=== PATIENT | female | born 1970 | race Caucasian/White ===

== ENCOUNTER 2016-06-27 11:31 | Inpatient (IN) | payer SELFPAY ==
[2016-06-13 14:05] VITALS: BMI 27.4
[2016-06-27] MEDS ORDERED: Midazolam 2 MG/2 ML VIAL ONE (12:51)
[2016-06-27] MEDS ORDERED: Propofol 10 mg/ml Inj (20 ML) ONE ×2 (12:52→16:01)
--- NOTE | 2016-06-27 13:16 | CP.PCM.HP ---
History of Present Illness - History of Present Illness History of Present Illness: 46yo female with h/o menorrhagia and fibroid uterus leading to episodes of anemia requiring hemotransfusion returns here today for a scheduled LUCAS. The options available for management has been described to patient and the patient had elected to go for the procedure for definitive treatment of her condition. The risks as well as the benefits and alternatives were described to the Pt. Pt verbalized understanding and obtained a consent. Present on Admission - Present on Admission Any Indicators Present on Admission: No Review of Systems - Review of Systems All systems: reviewed and no additional remarkable complaints except Past Patient History - Infectious Disease Hx of Infectious Diseases: None - Past Medical History & Family History Past Medical History?: Yes - Past Social History Smoking Status: Never Smoked - CARDIAC Hx Cardiac Disorders: Yes Hx Hypertension: Yes - PULMONARY Hx Respiratory Disorders: No - NEUROLOGICAL Hx Neurological Disorder: No - HEENT Hx HEENT Problems: Yes Other/Comment: blurry vision - RENAL Hx Chronic Kidney Disease: No - ENDOCRINE/METABOLIC Hx Endocrine Disorders: No - HEMATOLOGICAL/ONCOLOGICAL Hx Blood Disorders: Yes Hx Anemia: Yes Hx Blood Transfusions: No - INTEGUMENTARY Hx Dermatological Problems: No - MUSCULOSKELETAL/RHEUMATOLOGICAL Hx Musculoskeletal Disorders: No Hx Falls: No - GASTROINTESTINAL Hx Gastrointestinal Disorders: Yes Hx Hemorrhoids: Yes Other/Comment: bleeding from hemmoroids - GENITOURINARY/GYNECOLOGICAL Hx Genitourinary Disorders: Yes Hx Urinary Tract Infection: No Other/Comment: HX: UTERINE FIBROIDS : 2 Para: 2 - PSYCHIATRIC Hx Psychophysiologic Disorder: No Hx Substance Use: No - SURGICAL HISTORY Hx Surgeries: Yes Hx Section: Yes (x1) Other/Comment: bladder incontinence surgery. HX: SURGERY FOR PROLAPSED UTERUS( INFO FROM MED. RECORD) - ANESTHESIA Hx Anesthesia: Yes Hx Anesthesia Reactions: No Hx Malignant Hyperthermia: No Meds Allergies/Adverse Reactions: Allergies Allergy/AdvReac Type Severity Reaction Status Date / Time aspirin Allergy NAUSEA Verified 06/27/16 12:45 diclofenac Allergy NAUSEA Verified 06/27/16 12:45 ibuprofen [From Motrin] Allergy RASH Verified 06/27/16 12:45 Physical Exam - Constitutional Appears: Well - Eye Exam Eye Exam: PERRL - Respiratory Exam Respiratory Exam: Clear to Auscultation Bilateral, NORMAL BREATHING PATTERN - Cardiovascular Exam Cardiovascular Exam: REGULAR RHYTHM, RRR - GI/Abdominal Exam GI & Abdominal Exam: Normal Bowel Sounds - Exam Exam: NORMAL INSPECTION Bimanual exam: Uterine Enlargement - Extremities Exam Extremities exam: Positive for: normal inspection - Neurological Exam Neurological exam: Alert, Oriented x3 Results - Vital Signs Recent Vital Signs: Last Vital Signs Temp 97.8 F 06/27/16 12:06 Pulse 76 06/27/16 12:06 Resp 20 06/27/16 12:06 BP 126/85 06/27/16 12:06 Pulse Ox 98 06/27/16 12:06 - Labs Labs: Laboratory Results - last 24 hr 06/27/16 12:34 Blood Type A POSITIVE - Impressions Impression: 46yo Female with Fibroid uterus and HYpermenorrhea. Assessment & Plan (1) Fibroid (bleeding) (uterine) Status: Acute (2) Hypermenorrhea Status: Acute - Assessment and Plan (Free Text) Plan: NPO IV Fluids Sequential compression device Mefoxine 2gms 1 hour before incision. 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 - Date & Time Date: 06/27/16 Time: 13:22 Decision To Admit - Pt Status Changed To: Hospital Disposition Of: Inpatient - Admit Certification Admit to Inpatient:: After my assessment, the patient will require hospitalization for at least two midnights. This is because of the severity of symptoms shown, intensity of services needed, and/or the medical risk in this patient being treated as an outpatient. - InPatient: Physician Admission Certification:: Ignacio Still - . 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
[2016-06-27] MEDS ORDERED: Lactated Ringer's 1,000 ML IV ONE ×3 (13:55→16:21)
[2016-06-27] MEDS: cefOXitin IV 2 gm in Dextrose 50 ML IVPB ONE ×2 (14:05→14:12)
[2016-06-27] MEDS ORDERED: Lactated Ringer's 1,000 ML IV SCH (14:30)
[2016-06-27] MEDS ORDERED: HYDROmorphone 0.5 mg/0.5 ml ISec IVP PRN (14:30)
[2016-06-27] MEDS ORDERED: Morphine 4 MG/ML VIAL ONE (14:37)
[2016-06-27] MEDS ORDERED: Bupivacaine 0.5% Inj(30mL) ONE (14:38)
[2016-06-27] MEDS ORDERED: BUPIVACAINE 0.125%/0.9% NACL 600 ML IJ ONE (15:00)
[2016-06-27] MEDS ORDERED: Rocuronium 10 mg/ml (5 ml) ONE (15:03)
--- NOTE | 2016-06-27 16:12 | PCM.SURG1 ---
Surgeon's Initial Post Op Note - Surgeon's Notes Surgeon: Dr Still [place] Worker: Elzbieta Ly ( [facility] Practicxe resident) Type of Anesthesia: General Endo Anesthesia Administered By: Dr Sood Pre-Operative Diagnosis: 46yo Female with Hypermenorrhea and fibroid uterus Operative Findings: 8-10wk sized anteverted multinodular fibroid uterus. Normal appearing ovaries and fallopian tubes. IVFluid intake- 1700mls. EBL- 100mls. Urine - output- 200mls Post-Operative Diagnosis: Same as preop diagnosis Operation Performed: Total abdominal Hysterectomy and bilateral salpingectomy Specimen/Specimens Removed: Uterus with cervix and bilateral fallopian tubes. Estimated Blood Loss: EBL {In ML}: 100 Post-Op Condition: Good Date of Surgery/Procedure: 06/27/16 Time of Surgery/Procedure: 16:13
[2016-06-27] MEDS ORDERED: Morphine Monoject Barrel PCA 1mg/ml IV PRN (16:22)
[2016-06-27] MEDS: HYDROmorphone 0.5 mg/0.5 ml ISec IVP PRN ×2 (16:28→16:52)
[2016-06-27] MEDS: cefOXitin IV 2 gm in Dextrose 50 ML IVPB SCH (21:52)
[2016-06-28] MEDS: cefOXitin IV 2 gm in Dextrose 50 ML IVPB SCH ×2 (06:04→13:45)
[2016-06-28 07:53] LABS: HEMATOCRIT 28.2 % (34.0-47.0); MEAN CELL VOLUME 68.6 fL (81.0-99.0); MEAN CORPUSCULAR HEMOGLOBIN 21.6 pg (27.0-31.0); MEAN CORPUSCULAR HGB CONC 31.4 g/dL (33.0-37.0); MEAN PLATELET VOLUME 9.4 fL (7.2-11.7); RED CELL DISTRIBUTION WIDTH 18.5 % (11.5-14.5); WHITE BLOOD COUNT 10.8 K/uL (4.8-10.8)
[2016-06-28 07:55] LABS: CHLORIDE 101 mmol/L (98-107); POTASSIUM 4.5 mmol/L (3.6-5.2); SODIUM 137 mmol/L (132-148)
[2016-06-28 07:58] LABS: BLOOD UREA NITROGEN 8 mg/dL (7-17); CALCIUM 8.5 mg/dl (8.6-10.4); CARBON DIOXIDE 25 mmol/L (22-30); GFR AFRICAN-AMERICAN > 60; GLUCOSE,RANDOM 126 mg/dL (65-105)
--- NOTE | 2016-06-28 08:53 | CP.PCM.PN ---
Subjective - Date & Time of Evaluation Date of Evaluation: 06/28/16 Time of Evaluation: 08:50 - Subjective Subjective: 46yo female s/p LUCAS, POD #1, clinically stable, afebrile, reporting adequate pain control, tolerating po, voiding freely. Objective - Vital Signs/Intake and Output Vital Signs (last 24 hours): Temp Pulse Resp BP Pulse Ox 98.4 F 65 20 108/71 100 06/28/16 08:00 06/28/16 08:00 06/28/16 08:00 06/28/16 08:00 06/28/16 08:00 Intake and Output: 06/28/16 06/28/16 06:59 18:59 Intake Total 1475 Output Total 1800 Balance -325 - Medications Medications: Current Medications Enoxaparin Sodium (Lovenox) 40 mg SC DAILY [facility] Lactated Ringer's (Lactated Ringer's) 1,000 mls @ 125 mls/hr IV .Q8H [facility] Last Admin: 06/28/16 00:34 Dose: 125 mls/hr BUPIVACAINE 0.125%/0.9% NACL (Bupivacaine-Ns 0.125% On-Q Sports Umpire) 600 mls @ 4 mls/ hr IJ ONCE ONE Stop: 07/03/16 20:59 Cefoxitin Sodium (Mefoxin Iv 2 Gm Duplex) 50 mls @ 50 mls/hr IVPB Q8H [facility] Stop: 06/28/16 15:14 Last Admin: 06/28/16 06:04 Dose: 50 mls/hr Morphine Sulfate/Sodium Chloride (Morphine Requirements Manager Monoject Barrel) 30 mg IV Q4 PRN PRN Reason: Protocol Last Admin: 06/27/16 17:15 Dose: 30 mg Oxycodone/Acetaminophen (Percocet 5/325 Mg Tab) 2 tab PO Q4 PRN PRN Reason: Pain, severe (8-10) Stop: 06/30/16 16:04 - Labs Labs: 06/28/16 07:37 06/28/16 07:37 - Constitutional Appears: Well - Eye Exam Eye Exam: PERRL - Respiratory Exam Respiratory Exam: Clear to Ausculation Bilateral, NORMAL BREATHING PATTERN - Cardiovascular Exam Cardiovascular Exam: REGULAR RHYTHM, RRR - GI/Abdominal Exam GI & Abdominal Exam: Soft, Diminished Bowel Sounds - Exam External exam: NORMAL EXTERNAL EXAM - Back Exam Back Exam: NORMAL INSPECTION - Neurological Exam Neurological Exam: Oriented x3 Assessment and Plan (1) Status post total abdominal hysterectomy Status: Acute - Assessment and Plan (Free Text) Plan: D/C folleys catheter, Encourage ambulation, Liquids diet , advance to regular,
--- NOTE | 2016-06-28 15:26 | OP ---
PROCEDURE DATE: 06/27/2016 PREOPERATIVE DIAGNOSES: A 46-year-old with fibroid uterus and hypermenorrhea. POSTOPERATIVE DIAGNOSES: A 46-year-old with fibroid uterus and hypermenorrhea. PROCEDURE: Total abdominal hysterectomy and bilateral salpingectomy performed on 06/27/2016. SURGEON: Dr. Still. SKIN THERAPIST: Elzbieta Vickers(Medical Student). The human services assistant remained with the surgeon throughout its entire length. Assistance to the procedure was needed for exposure of tissues and help in the conduct of the surgery. ANESTHESIA: General endotracheal. ANESTHESIOLOGIST: Dr. Sood. COMPLICATIONS: There were no complications. ESTIMATED BLOOD LOSS: 100 mL. IV FLUID INTAKE: 1700 mL. URINE OUTPUT: 200 mL at the end of the procedure. FINDINGS: An enlarged uterus of about 8-10 week size, anteverted and multinodular fibroid uterus. There were normal appearing ovaries and fallopian tubes bilaterally. DESCRIPTION OF PROCEDURE: The risks, benefits, indications, and alternatives of the procedure were reviewed with the patient and informed consent was obtained. The patient was taken to the operating room with IV running and Gomez catheter in place. The patient was placed in the supine position, given general anesthesia, prepped and draped in the usual sterile fashion. A Pfannenstiel skin incision was made about 2 cm above the symphysis pubis and extended sharply to the rectus fascia. The fascia was then incised bilaterally with a curved Garcia scissors and the muscles of the anterior abdominal galvez were in the midline by sharp and blunt dissection. The peritoneum was grasped between 2 Lisset clamps, elevated, and entered sharply with Metzenbaum scissors and with good visualization of the bladder. The pelvis was examined with the findings noted above. An O'Azeem-O'Collier retractor was placed into the incision and the bowels were packed away with moist laparotomy sponges. A uterine corkscrew was placed on the fundal region of the uterus for retraction. The round ligaments on both sides were clamped, cauterized and transected using the LigaSure device. The anterior leaf of the broad ligament was incised along the bladder reflection to the midline from both sides. The bladder was then gently dissected off the uterine segment and the cervix with a sponge stick. The attachment of the ovarian ligaments and the fallopian tubes on both sides were clamped with the 8 mm LigaSure device. These were cauterized and transected on both sides. Hemostasis was visualized. The uterine arteries were skeletonized bilaterally. The arteries were clamped bilaterally with the LigaSure device at the level of the internal os. These were cauterized and transected. Again, hemostasis was assured. The uterosacral ligaments were clamped on both sides with a LigaSure device, cauterized and transected in a similar fashion. These tissues were clamped and cauterized in a caudal fashion until the vaginal cuff was entered. The cervix and the uterus at this point were amputated with the cautery. The vaginal cuff angles were closed with zezxam-am-enesd stitches of #0 Vicryl and were transfixed to the ipsilateral cardinal and uterosacral ligaments. The remainder of the vaginal cuff was closed with a series of interrupted #0 Vicryl [id number] sutures. Hemostasis was obtained. The remnants of the fallopian tubes on each side were elevated with babcocks forceps and the broad ligament inferior to each of the segments were clamped, cauterized and transected using the ligasure device. The excised fallopian tubes were sent for histopathology. The pelvis was then irrigated copiously with warmed normal saline. All laparotomy sponges and instruments were removed from the abdomen. Surgicel was placed in the area around the vaginal cuff for hemostasis. Attention was then turned to the abdominal wall, which was closed in layers with 2-0 Vicryl for the peritoneum and the rectus muscles. The rectus fascia was reapproximated using Vicryl #0. The subcutaneous tissue was brought together by means of #2-0 plain catgut. The skin was closed in a subcuticular fashion using #4-0 Vicryl. An On-Q pain reducing device was placed into the abdominal incisional wound to provide anesthesia. When the procedure was completed, the patient was sent to the recovery room awake and in stable condition. All counts of instruments, laparotomy pads, and needles used were correct x 3. Ignacio Still MD cc: [id number] TT: 06/28/2016 15:25:12 rod MAC
[2016-06-28] MEDS: Enoxaparin 40 mg Syringe SC SCH (15:48)
[2016-06-28] MEDS: Oxycodone/Acetaminophen 5/325 mg Tab PO PRN (18:16)
[2016-06-29 05:55] VITALS: RESP 18; O2SAT 98
[2016-06-29] MEDS: Oxycodone/Acetaminophen 5/325 mg Tab PO PRN (07:13)
[2016-06-29 07:17] VITALS: BP 106/73; PULSE 85; TEMP 98
--- NOTE | 2016-06-29 08:33 | CP.PCM.DIS ---
Provider - Provider Date of Admission: 06/27/16 16:03 Attending physician: Ignacio Still Time Spent in preparation of Discharge (in minutes): 32 Diagnosis - Discharge Diagnosis (1) Status post total abdominal hysterectomy Status: Acute Hospital Course - Lab Results Lab Results: Most Recent Lab Values WBC 10.8 K/uL (4.8-10.8) D 06/28/16 07:37 RBC 4.11 Mil/uL (3.80-5.20) 06/28/16 07:37 Hgb 8.9 g/dL (11.0-16.0) L 06/28/16 07:37 Hct 28.2 % (34.0-47.0) L 06/28/16 07:37 MCV 68.6 fL (81.0-99.0) L 06/28/16 07:37 MCH 21.6 pg (27.0-31.0) L 06/28/16 07:37 MCHC 31.4 g/dL (33.0-37.0) L 06/28/16 07:37 RDW 18.5 % (11.5-14.5) H 06/28/16 07:37 Plt Count 183 K/uL (130-400) 06/28/16 07:37 MPV 9.4 fL (7.2-11.7) 06/28/16 07:37 Sodium 137 mmol/L (132-148) 06/28/16 07:37 Potassium 4.5 mmol/L (3.6-5.2) 06/28/16 07:37 Chloride 101 mmol/L (98-107) 06/28/16 07:37 Carbon Dioxide 25 mmol/L (22-30) 06/28/16 07:37 Anion Gap 15 (10-20) 06/28/16 07:37 BUN 8 mg/dL (7-17) 06/28/16 07:37 Creatinine 0.5 MG/DL (0.7-1.2) L 06/28/16 07:37 Est GFR ( Amer) > 60 06/28/16 07:37 Est GFR (Non-Af Amer) > 60 06/28/16 07:37 Random Glucose 126 mg/dL (65-105) H 06/28/16 07:37 Calcium 8.5 mg/dl (8.6-10.4) L 06/28/16 07:37 Blood Type A POSITIVE 06/27/16 12:34 Antibody Screen Negative 06/27/16 12:34 - Hospital Course Hospital Course: 46yo female s/p LUCAS and B/L Salpingectomy, POD #2, clinically stable, ambulating , adequate pain control and tolerating po. The ON- Q pain relieving system in the incision was removed today. Pt would be discharged home today on Percocet and Keflex. Pt would f/u at the clinic in 2 weeks for wound check. Discharge Exam - Eye Exam Eye Exam: EOMI - Respiratory Exam Respiratory Exam: Clear to PA & Lateral, NORMAL BREATHING PATTERN - Cardiovascular Exam Cardiovascular Exam: REGULAR RHYTHM, RRR - GI/Abdominal Exam GI & Abdominal Exam: Normal Bowel Sounds - Exam Exam: NORMAL INSPECTION External exam: NORMAL EXTERNAL EXAM - Extremities Exam Extremities exam: normal inspection - Neurological Exam Neurological exam: Oriented x3 - Psychiatric Exam Psychiatric exam: Normal Mood Discharge Plan - Follow Up Plan Condition: GOOD Disposition: HOME/ ROUTINE Instructions: Abdominal Hysterectomy (DC), Wound Healing and Your Diet (DC) Additional Instructions: F/U with DR Still in 2 weeks. Clinical Quality Measures - Date & Time of Discharge Summary Date of Discharge Summary: 06/29/16 Time of Discharge Summary: 08:37
[2016-06-29] MEDS: Enoxaparin 40 mg Syringe SC SCH (09:06)
== END 2016-06-29 09:59 | disposition home or self-care (01) | DRG 359 ==
LOC: C.SDS 11:31 → C.4M 16:03
PROVIDERS: ADMIT Obstetrics & Gynecology; ATTEND Obstetrics & Gynecology
PROC: 0UT70ZZ Resection of Bilateral Fallopian Tubes, Open Approach (ICD-10-PCS; 2016-06-27)
PROC: 0UTC0ZZ Resection of Cervix, Open Approach (ICD-10-PCS; 2016-06-27)
PROC: 0UT90ZZ Resection of Uterus, Open Approach (ICD-10-PCS; principal; 2016-06-27 13:30)
DX: D25.9 Leiomyoma of uterus, unspecified (principal); N92.1 Excessive and frequent menstruation with irregular cycle

== ENCOUNTER 2016-10-08 10:27 | Emergency (ER) | payer OTHER, SELFPAY ==
[2016-10-08 10:32] VITALS: BMI 49.8
[2016-10-08 10:33] VITALS: BP 111/80; PULSE 86; RESP 18; TEMP 98.3; O2SAT 95
[2016-10-08 11:26] LABS: RBC URINE 1 /hpf (0-3); URINE BACTERIA RARE (<OCC); URINE BILIRUBIN NEGATIVE (NEGATIVE); URINE BLOOD 2+ (NEGATIVE); URINE COLOR Yellow (YELLOW); URINE GLUCOSE (UA) NORMAL (Normal); URINE KETONE NEGATIVE (NEGATIVE); URINE LEUKOCYTE ESTERASE NEG Leu/uL (Negative); URINE PROTEIN NEGATIVE (NEGATIVE); URINE UROBILINOGEN NORMAL mg/dL (0.2-1.0); WBC URINE 1 /hpf (0-5)
--- NOTE | 2016-10-08 11:41 | C.PDOC ---
History Of Present Illness Pt c/o right lower back/buttock pain radiating down RLE. Time Seen by Provider: 10/08/16 10:55 Chief Complaint (Nursing): Back Pain History Per: Patient Onset/Duration Of Symptoms: Days (1) Current Symptoms Are (Timing): Still Present Quality Of Discomfort: "Pain" Severity: Moderate Previous Symptoms: None Associated Symptoms: None Exacerbating Factor(s): Movement Additional History Per: Prior Records Past Medical History Reviewed: Historical Data, Nursing Documentation, Vital Signs Vital Signs: Last Vital Signs Temp 98.3 F 10/08/16 10:33 Pulse 86 10/08/16 10:33 Resp 18 10/08/16 10:33 BP 111/80 10/08/16 10:33 Pulse Ox 95 10/08/16 11:41 - Medical History PMH: Anemia, HTN Other Surgeries: Hysterectomy - [facility] Procedures RESECTION OF BILATERAL FALLOPIAN TUBES, OPEN APPROACH (06/27/16) RESECTION OF CERVIX, OPEN APPROACH (06/27/16) RESECTION OF UTERUS, OPEN APPROACH (06/27/16) TRANSFUSE NONAUT WHOLE BLOOD IN PERIPH VEIN, PERC (03/11/16) Family History: States: Unknown Family Hx - Social History Hx Tobacco Use: No Hx Alcohol Use: No Hx Substance Use: No - Immunization History Hx Tetanus Toxoid Vaccination: Yes Hx Influenza Vaccination: No Hx Pneumococcal Vaccination: No Review Of Systems Except As Marked, All Systems Reviewed And Found Negative. Constitutional: Negative for: Fever, Weakness Cardiovascular: Negative for: Chest Pain Respiratory: Negative for: Shortness of Breath Gastrointestinal: Negative for: Vomiting, Abdominal Pain Genitourinary: Negative for: Dysuria, Incontinence, Hematuria Musculoskeletal: Negative for: Neck Pain Skin: Negative for: Rash Neurological: Negative for: Weakness, Numbness, Seizures, Altered Mental Status Physical Exam - Physical Exam Appears: Non-toxic, No Acute Distress Skin: Normal Color, Warm, Dry, No Rash Head: Atraumatic, Normacephalic Eye(s): bilateral: Normal Inspection, PERRL, EOMI Neck: Normal ROM, Supple Cardiovascular: Rhythm Regular Respiratory: Normal Breath Sounds, No Accessory Muscle Use Gastrointestinal/Abdominal: Soft, No Tenderness Back: No CVA Tenderness, No Vertebral Tenderness, Paraspinal Tenderness (right lower/buttock area), Straight Leg Raising (positive on right side) Extremity: Normal ROM, No Calf Tenderness Extremity: Bilateral: Normal Color And Temperature Pulses: Right Dorsalis Pedis: Normal Neurological/Psych: Oriented x3, Normal Motor, Normal Sensation ED Course And Treatment O2 Sat by Pulse Oximetry: 95 Pulse Ox Interpretation: Normal Reassessment Condition: Improved Disposition Counseled Patient/Family Regarding: Diagnosis, Need For Followup, Rx Given - Disposition Referrals: [facility] [Outside] Disposition: HOME/ ROUTINE Disposition Time: 12:00 Condition: IMPROVED Additional Instructions: Follow up in the clinic for further evaluation and treatment. Return to the ER if you develop weakness, numbness, trouble urinating, worsening of symptoms or if you have any other concerns. Prescriptions: traMADol/Acetaminophen [Ultracet 325 MG-37.5 MG] 1 tab PO Q4 PRN #30 tab PRN Reason: Pain Instructions: Sciatica (ED) Forms: [employer] (Arabic) Print Language: BULGARIAN - Clinical Impression Clinical Impression: Right sided sciatica
== END 2016-10-08 12:06 | disposition home or self-care (01) ==
LOC: C.ER 10:27
DX: M54.31 Sciatica, right side (principal)

== ENCOUNTER 2018-07-06 12:44 | Inpatient (IN) | payer OTHER ==
[2018-07-06 12:44] VITALS: BMI 49.8
[2018-07-06 14:28] LABS: BASO % 0.7 % (0.0-2.0); EOS # 0.2 K/uL (0.0-0.7); EOS % 3.6 % (0.0-4.0); LYMPH # 1.9 K/uL (1.0-4.3); LYMPH % 28.5 % (20.0-40.0); MEAN CORPUSCULAR HEMOGLOBIN 27.6 pg (27.0-31.0); MEAN CORPUSCULAR HGB CONC 33.3 g/dL (33.0-37.0); MEAN PLATELET VOLUME 9.2 fL (7.2-11.7); MONO # 0.6 K/uL (0.0-0.8); MONO % 9.1 % (0.0-10.0); NEUT # 3.9 K/uL (1.8-7.0); NEUT % 58.1 % (50.0-75.0); RBC 4.97 Mil/uL (3.80-5.20); WHITE BLOOD COUNT 6.7 K/uL (4.8-10.8)
[2018-07-06 14:30] LABS: HEMOGLOBIN 13.7 g/dL (11.0-16.0)
[2018-07-06 14:39] LABS: ALB/GLOB RATIO 1.5 (1.0-2.1); ALBUMIN 4.7 g/dL (3.5-5.0); ALT/SGPT 30 U/L (9-52); AST/SGOT 30 U/L (14-36); BLOOD UREA NITROGEN 11 mg/dL (7-17); CALCIUM 9.4 mg/dl (8.6-10.4); GFR NON-AFRICAN AMERICAN > 60
[2018-07-06] MEDS ORDERED: Iodixanol 320 MG/ML 100 ML BOTTLE IV ONE (15:40)
--- NOTE | 2018-07-06 16:59 | CT ---
Date of service: 07/06/2018 PROCEDURE: CT NECK WITH CONTRAST HISTORY: right jaw/upper neck mass - abscess/LN/ salivary? COMPARISON: None available. TECHNIQUE: CT of the neck with intravenous contrast. Coronal and sagittal reformats generated. Intravenous contrast dose: 100 Visipaque 320 Radiation dose: Total exam DLP = 475.97 mGy-cm. This CT exam was performed using one or more of the following dose reduction techniques: Automated exposure control, adjustment of the mA and/or kV according to patient size, and/or use of iterative reconstruction technique. FINDINGS: NASOPHARYNX: Within normal limits. SUPRAHYOID NECK: No mass or abnormal enhancement oropharynx, oral cavity, parapharyngeal space and retropharyngeal space. INFRAHYOID NECK: No mass or abnormal enhancement larynx, hypopharynx, and supraglottic space. Vocal cords intact. MASS: None. GLANDS: Parotid and submandibular glands unremarkable. Normal size thyroid gland, without nodule. LYMPH NODES: There is an approximately 3.0 x 1.8 x 2.6 cm enhancing nodule with eccentric hypoenhancing component anteriorly, located medial to the platysma overlying the angle of the mandible. There are multiple subcentimeter lymph nodes, including submental, submandibular, anterior and posterior cervical chain lymph nodes. CERVICAL SPINE: No fracture or focal lesion. Within normal limits for the patient's age. VASCULAR STRUCTURES: There is normal intravascular enhancement. OTHER FINDINGS: None. IMPRESSION: Approximately 3.0 x 1.8 x 2.6 cm enhancing nodule with an eccentric necrotic component anteriorly, located deep to the right platysma overlying the angle of the mandible. Findings are most compatible with enlarged necrotic lymph node, given multiple subcentimeter lymph nodes involving the anterior and posterior cervical chain lymph nodes, this may be reactive, infectious or inflammatory in etiology. Neoplastic etiology including lymphoma is a consideration. The other differential considerations include benign and malignant soft tissue neoplasm. Clinical follow-up is advised and histopathologic correlation may be performed if clinically indicated.
--- NOTE | 2018-07-06 17:22 | C.PDOC ---
History Of Present Illness Patient presents to ED c/o 2-3 days or worsening right sided jaw swelling. She states she has had a "ball" in the area for approx 6 months, but it suddenly got larger and more painful. She admits to fever/chills, and radiation of pain into right ear. Patient denies dental pain or discharge in mouth, chest pain, SOB, trauma/injuries. PMHx: HTN, anemia Time Seen by Provider: 07/06/18 13:25 Chief Complaint (Nursing): Fever History Per: Patient History/Exam Limitations: no limitations Onset/Duration Of Symptoms: Persistent (6 months, worse in the past 2-3 days) Current Symptoms Are (Timing): Still Present Associated Symptoms: Fever, Chills Past Medical History Reviewed: Historical Data, Nursing Documentation, Vital Signs Vital Signs: Last Vital Signs Temp 98.3 F 07/06/18 17:18 Pulse 82 07/06/18 17:18 Resp 18 07/06/18 17:18 BP 131/70 07/06/18 17:18 Pulse Ox 100 07/06/18 17:18 Primary Care Provider: Non [facility] Provider, - Medical History PMH: Anemia, HTN - [facility] Procedures RESECTION OF BILATERAL FALLOPIAN TUBES, OPEN APPROACH (06/27/16) RESECTION OF CERVIX, OPEN APPROACH (06/27/16) RESECTION OF UTERUS, OPEN APPROACH (06/27/16) TRANSFUSE NONAUT WHOLE BLOOD IN PERIPH VEIN, PERC (03/11/16) Family History: States: No Known Family Hx - Social History Hx Tobacco Use: No Hx Alcohol Use: No Hx Substance Use: No - Immunization History Hx Tetanus Toxoid Vaccination: Yes Hx Influenza Vaccination: No Hx Pneumococcal Vaccination: No Review Of Systems Constitutional: Positive for: Fever, Chills, Other (right jaw pain/swelling) Cardiovascular: Negative for: Chest Pain, Palpitations Respiratory: Negative for: Cough, Shortness of Breath Gastrointestinal: Negative for: Nausea, Vomiting, Abdominal Pain, Diarrhea Skin: Negative for: Rash Neurological: Negative for: Headache, Dizziness Physical Exam - Physical Exam Appears: Well, Non-toxic, No Acute Distress Skin: Warm, Dry, Other (right jaw (angle of jaw) - approx 2cm tender solid mass/LN?, no overlying erythema, no fluctuance or induration) Head: Atraumatic, Normacephalic Oral Mucosa: Moist Tongue: Normal Appearing, No Swelling Lips: Normal Appearing, No Swelling Teeth: Normal Dentition, Other (no gingival erythema or swellign ) Throat: Normal, No Erythema, No Exudate, No Drooling Chest: Symmetrical Cardiovascular: Rhythm Regular Respiratory: Normal Breath Sounds, No Rales, No Rhonchi, No Wheezing Neurological/Psych: Oriented x3 ED Course And Treatment - Laboratory Results Result Diagrams: 07/08/18 07:15 07/08/18 07:15 Lab Results: Total Bilirubin 0.7 mg/dL (0.2-1.3) 07/06/18 14:24 AST 30 U/L (14-36) 07/06/18 14:24 ALT 30 U/L (9-52) 07/06/18 14:24 Alkaline Phosphatase 71 U/L (38-126) 07/06/18 14:24 Total Protein 7.9 g/dL (6.3-8.3) 07/06/18 14:24 Albumin 4.7 g/dL (3.5-5.0) 07/06/18 14:24 Globulin 3.2 gm/dL (2.2-3.9) 07/06/18 14:24 Albumin/Globulin Ratio 1.5 (1.0-2.1) 07/06/18 14:24 O2 Sat by Pulse Oximetry: 100 (RA) Pulse Ox Interpretation: Normal - CT Scan/US CT ABD/PELVIS Other Rad Studies (CT/US): Read By Radiologist, Radiology Report Reviewed CT/US Interpretation: Accession No. : [id number]. Patient Name / ID : MARLENE GARCÍA / [id number]. Exam Date : 07/06/2018 15:58:53 ( Approved ). Study Comment : Sex / Age : F / 48Y. Creator : Abril Schaefer. Dictator : Aviva Figueroa MD. Wrapper Stemmer Hand : Nuclear Station Operator : Aviva Figueroa MD. Approver2 : Report Date : 07/06/2018 16:21:13. My Comment : . Date of service: 07/06/2018. PROCEDURE: CT NECK WITH CONTRAST. HISTORY: right jaw/upper neck mass - abscess/LN/ salivary? COMPARISON: None available. TECHNIQUE: CT of the neck with intravenous contrast. Coronal and sagittal reformats generated. Intravenous contrast dose: 100 Visipaque 320. Radiation dose: Total exam DLP = 475.97 mGy-cm. This CT exam was performed using one or more of the following dose reduction techniques: Automated exposure control, adjustment of the mA and/or kV according to patient size, and/or use of iterative reconstruction technique. FINDINGS: NASOPHARYNX: Within normal limits. SUPRAHYOID NECK: No mass or abnormal enhancement oropharynx, oral cavity, parapharyngeal space and retropharyngeal space. INFRAHYOID NECK: No mass or abnormal enhancement larynx, hypopharynx, and supraglottic space. Vocal cords intact. MASS: None. GLANDS: Parotid and submandibular glands unrem arkable. Normal size thyroid gland, without nodule. LYMPH NODES: There is an approximately 3.0 x 1.8 x 2.6 cm enhancing nodule with eccentric hypoenhancing component anteriorly, located medial to the platysma overlying the angle of the mandible. There are multiple subcentimeter lymph nodes, including submental, submandibular, anterior and posterior cervical chain lymph nodes. CERVICAL SPINE: No fracture or focal lesion. Within normal limits for the patient's age. VASCULAR STRUCTURES: There is normal intravascular enhancement. OTHER FINDINGS: None. IMPRESSION: Approximately 3.0 x 1.8 x 2.6 cm enhancing nodule with an eccentric necrotic component anteriorly, located deep to the right platysma overlying the angle of the mandible. Findings are most compatible with enlarged necrotic lymph node, given multiple subcentimeter lymph nodes involving the anterior and posterior cervical chain lymph nodes, this may be reactive, infectious or inflammatory in etiology. Neoplastic etiology including lymphoma is a consideration. The other differential considerations include benign and m alignant soft tissue neoplasm. Clinical follow-up is advised and histopathologic correlation may be performed if clinically indicated. Progress Note: Blood work, CT scan with IV contrast ordered and reviewed. Discussed patient with ENT Dr. Verdugo, who evaluated patient in the ED at [facility] 6pm- recommends IV antibiotics and medical admission, may need biopsy. Pending call back from hospitalist. - Physician Consult Information Physician Contacted: Jeremy Hernandez Outcome Of Conversation: Discussed patient with hospitalist, agrees with admission to his service for enlarged/necrotic lymph node, lymphadenitis, needing iV antibiotics and for possible biopsy. Dr. Verdugo consult entered for ENT. Critical Care Time - Critical Care Note Total Time (in mins): 35 Documented critical care: time excludes all time spent performing seperately billable procedures. Disposition - Disposition Disposition: HOSPITALIZED Disposition Time: 18:31 Condition: STABLE - Clinical Impression Clinical Impression: Lymphadenitis, Necrotizing inflammation of lymph node Decision To Admit - Pt Status Changed To: Hospital Disposition Of: Inpatient - Admit Certification Admit to Inpatient:: After my assessment, the patient will require hospitalization for at least two midnights. This is because of the severity of symptoms shown, intensity of services needed, and/or the medical risk in this patient being treated as an outpatient. - InPatient: Physician Admission Certification:: see notes - . Bed Request Type: Regular Admitting Physician: Kit Washington Patient Diagnosis: Lymphadenitis, Necrotizing inflammation of lymph node
[2018-07-06] MEDS ORDERED: Clindamycin 300 MG in Sodium Chloride 0.9% 50 ML IVPB STA (18:32)
[2018-07-06] MEDS ORDERED: Clindamycin 600mg/50ml NS 600 MG/50 ML BAG IVPB ONE (18:45)
--- NOTE | 2018-07-06 20:06 | CP.PCM.HP ---
<Ken Crawford - Last Filed: 07/07/18 03:09> History of Present Illness - History of Present Illness History of Present Illness: H&P for Dr. Padmini CEE "right jaw swelling and pain" HPI: Patient is a 48 year old female who presents for right jaw swelling for the past 6 months, that enlarged in size and became painful over the past 3 days with pressure like pain radiating up to right ear and right eye. She states she feels as though her vision in her right eye is slightly blurry but denies any pain in her right eye itself. She denies pain with movement of her right eye. She states she has intermittent buzzing in her right ear as well. She states she had subjective fever and chills for the past 3 days as well, but never checked her temperature at home. She denies pain with swallowing or difficulty swallowing. She has been eating and drinking solids and liquids without any issues. She admits to pain when she bites down on her right side, but states she has no teeth on right lower side. She has taken Tylenol for her symptoms with mild improvement of her symptoms. She denies recent sick contacts. Review of Systems: She traveled to [place] 6 months ago, but she states she had the slight painless ball before her trip there. She admits to occasional intermittent nonproductive cough at night, but she has not taken anything for it. She has constipation for which she takes a stool softener. She denies dysuria, hematuria, urinary frequency, lower extremity swelling. She states she has chronic right knee pain, does not use a cane, able to ambulate without issues. She denies lightheadedness, dizziness, chest pain, shortness of breath, chest pain, abdominal pain, nausea, vomiting, diarrhea. PMH: history of anemia from menorrhagia - has received prior transfusions, as per patient resolved after hysterectomy in 2017 PSH: hysterectomy with bilateral salpingectomy, C section, vaginal reconstruction Home meds: none Allergies: ASA, Diclofenac and Ibuprofen - facial swelling Family hx: Father - HTN, [place]. mother - DM. Niece has breast cancer Social hx: denies history of tobacco use, occasional alcohol use. Denies illicit drug use. 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 Full code No advance directive Healthcare proxy: Son Manuel [phone] Present on Admission - Present on Admission Any Indicators Present on Admission: No Review of Systems - Constitutional Constitutional: Chills, Fever. absent: Weight Gain, Weight Loss - EENT Nose/Mouth/Throat: absent: Sore Throat - Cardiovascular Cardiovascular: absent: Chest Pain, Dyspnea - Respiratory Respiratory: absent: Dyspnea - Gastrointestinal Gastrointestinal: absent: Abdominal Pain, Diarrhea, Nausea, Vomiting - Genitourinary Genitourinary: absent: Difficulty Urinating, Dysuria, Hematuria - Reproductive: Female Reproductive:Female: S/P Hysterectomy - Menstruation Menstruation: S/P Hysterectomy - Musculoskeletal Musculoskeletal: absent: Back Pain, Numbness, Tingling - Neurological Neurological: absent: Confusion, Dizziness, Numbness, Syncope - Psychiatric Psychiatric: absent: Anxiety, Depression Past Patient History - Infectious Disease Hx of Infectious Diseases: None - Past Medical History & Family History Past Medical History?: Yes - Past Social History Smoking Status: Never Smoked - CARDIAC Hx Hypertension: Yes - PULMONARY Hx Respiratory Disorders: No - NEUROLOGICAL Hx Neurological Disorder: No - HEENT Hx HEENT Problems: No - RENAL Hx Chronic Kidney Disease: No - ENDOCRINE/METABOLIC Hx Endocrine Disorders: No - HEMATOLOGICAL/ONCOLOGICAL Hx Anemia: Yes - INTEGUMENTARY Hx Dermatological Problems: No - MUSCULOSKELETAL/RHEUMATOLOGICAL Hx Musculoskeletal Disorders: No - GASTROINTESTINAL Hx Gastrointestinal Disorders: No - GENITOURINARY/GYNECOLOGICAL Hx Genitourinary Disorders: Yes Hx Urinary Tract Infection: No Other/Comment: HX: UTERINE FIBROIDS - PSYCHIATRIC Hx Substance Use: No - SURGICAL HISTORY Hx Surgeries: Yes Hx Section: Yes (x1) Hx Hysterectomy: Yes Other/Comment: bladder incontinence surgery. HX: SURGERY FOR PROLAPSED UTERUS(INFO FROM MED. RECORD) - ANESTHESIA Hx Anesthesia: Yes Hx Anesthesia Reactions: No Hx Malignant Hyperthermia: No Meds Allergies/Adverse Reactions: Allergies Allergy/AdvReac Type Severity Reaction Status Date / Time aspirin Allergy NAUSEA Verified 07/06/18 13:20 diclofenac Allergy NAUSEA Verified 07/06/18 13:20 ibuprofen [From Motrin] Allergy RASH Verified 07/06/18 13:20 Physical Exam - Constitutional Appears: Well, Non-toxic, No Acute Distress - Head Exam Head Exam: ATRAUMATIC, NORMOCEPHALIC - Eye Exam Eye Exam: EOMI, PERRL. absent: Nystagmus, Scleral icterus - ENT Exam ENT Exam: Normal External Ear Exam, Normal Oropharynx, TM's Normal Bilaterally Additional comments: 2.5 inch diameter round mobile mass to right angle of mandible, with no overlyi ng erythema. Slight tenderness to palpation. no active discharge. No mastoid tenderness, no pain on manipulation of right ear. Right TM intact, no erythema Able to open and close mouth speaking in full sentences no stridor Nose: no nasal discharge Mouth: no teeth on right lower side Pharynx: no exudates, no enlarged tonsils Eyes: No conjunctival injection, no active discharge. Extra ocular movement intact. PERRLA. Visual renteria intact. - Neck Exam Neck exam: Positive for: Full Rom - Respiratory Exam Respiratory Exam: Clear to Auscultation Bilateral, NORMAL BREATHING PATTERN. absent: Rales, Rhonchi, Wheezes, Respiratory Distress, Stridor - Cardiovascular Exam Cardiovascular Exam: REGULAR RHYTHM, +S1, +S2. absent: Gallop, Rubs, Systolic Murmur - GI/Abdominal Exam GI & Abdominal Exam: Normal Bowel Sounds, Soft. absent: Distended, Firm, Guarding, Tenderness - Extremities Exam Extremities exam: Positive for: normal capillary refill, pedal pulses present. Negative for: calf tenderness, tenderness - Back Exam Back exam: absent: CVA tenderness (L), CVA tenderness (R) - Neurological Exam Neurological exam: Alert, CN II-XII Intact, Oriented x3 - Psychiatric Exam Psychiatric exam: Normal Affect, Normal Mood - Skin Skin Exam: Dry, Intact, Warm Results - Vital Signs Recent Vital Signs: Last Vital Signs Temp 98.6 F 07/06/18 19:52 Pulse 73 07/06/18 19:52 Resp 16 07/06/18 19:52 BP 138/89 07/06/18 19:52 Pulse Ox 99 07/06/18 19:52 - Labs Result Diagrams: 07/06/18 14:24 07/06/18 14:24 Labs: Laboratory Results - last 24 hr 07/06/18 07/06/18 14:24 14:24 WBC 6.7 RBC 4.97 Hgb 13.7 D Hct 41.2 MCV 83.0 D MCH 27.6 MCHC 33.3 RDW 14.0 Plt Count 162 MPV 9.2 Neut % (Auto) 58.1 Lymph % (Auto) 28.5 Overton % (Auto) 9.1 Eos % (Auto) 3.6 Baso % (Auto) 0.7 Neut # (Auto) 3.9 Lymph # (Auto) 1.9 Overton # (Auto) 0.6 Eos # (Auto) 0.2 Baso # (Auto) 0.0 Sodium 141 Potassium 4.6 Chloride 99 Carbon Dioxide 28 Anion Gap 17 BUN 11 Creatinine 0.6 L Est GFR ( Amer) > 60 Est GFR (Non-Af Amer) > 60 Random Glucose 84 Calcium 9.4 Total Bilirubin 0.7 AST 30 ALT 30 Alkaline Phosphatase 71 Total Protein 7.9 Albumin 4.7 Globulin 3.2 Albumin/Globulin Ratio 1.5 Assessment & Plan - Assessment and Plan (Free Text) Assessment: 48 year old female with right painful lymphadenopathy Plan: Tender lymphadenopathy Afebrile White count 6.[address] Approximately 3.0 x 1.8 x 2.6 cm enhancing nodule with an eccentric necrotic component anteriorly, located deep to the right platysma overlying the angle of the mandible. Findings are most compatible with enlarged necrotic lymph node, given multiple subcentimeter lymph nodes involving the anterior and posterior cervical chain lymph nodes, this may be reactive, infectious or inflammatory in etiology. Neoplastic etiology including lymphoma is a consideration. The other differential considerations include benign and malignant soft tissue neoplasm. Clinical follow-up is advised and histopathologic correlation may be performed if clinically indicated. ENT Dr. Verdugo consulted who recommended antibiotics Started on Clindamycin 600mg IV in ED Clindamycin 300mg PO TID Florastor 250mg PO BID Tylenol PRN fever, pain Blood culture follow up History of anemia H/Hct 13.7/41.2 Monitor Constipation Colace 100mg PO BID Prophylaxis Heart healthy diet Heparin 5000 units SC Q8 Florastor 250mg PO BID Case discussed with Dr. Padmini Crawford, PGY1 <Kit Washington - Last Filed: 07/07/18 06:34> Results - Vital Signs Recent Vital Signs: Last Vital Signs Temp 98 F 07/07/18 00:00 Pulse 65 07/07/18 00:00 Resp 20 07/07/18 00:00 BP 117/75 07/07/18 00:00 Pulse Ox 98 07/07/18 00:00 - Labs Result Diagrams: 07/06/18 14:24 07/06/18 14:24 Labs: Laboratory Results - last 24 hr 07/06/18 07/06/18 07/07/18 14:24 14:24 04:30 WBC 6.7 RBC 4.97 Hgb 13.7 D Hct 41.2 MCV 83.0 D MCH 27.6 MCHC 33.3 RDW 14.0 Plt Count 162 MPV 9.2 Neut % (Auto) 58.1 Lymph % (Auto) 28.5 Overton % (Auto) 9.1 Eos % (Auto) 3.6 Baso % (Auto) 0.7 Neut # (Auto) 3.9 Lymph # (Auto) 1.9 Overton # (Auto) 0.6 Eos # (Auto) 0.2 Baso # (Auto) 0.0 Sodium 141 Potassium 4.6 Chloride 99 Carbon Dioxide 28 Anion Gap 17 BUN 11 Creatinine 0.6 L Est GFR ( Amer) > 60 Est GFR (Non-Af Amer) > 60 Random Glucose 84 Calcium 9.4 Total Bilirubin 0.7 AST 30 ALT 30 Alkaline Phosphatase 71 Total Protein 7.9 Albumin 4.7 Globulin 3.2 Albumin/Globulin Ratio 1.5 Urine HCG, Qual Negative Assessment & Plan - Date & Time Date: 07/07/18 (I have seen and examined the patient. I agree with the findings and plan of care as documented by Dr. Crawford. Patient with necrotic lymph node. Consult to Dr Verdugo. PO Clinda for now. History of anemia. Monitor H/H. Monitor for acute changes.) Time: 06:33 Attending/Attestation - Attestation I have personally seen and examined this patient.: Yes I have fully participated in the care of the patient.: Yes I have reviewed all pertinent clinical information: Yes
[2018-07-06 20:12] VITALS: RESP 20
--- NOTE | 2018-07-07 05:10 | CON ---
DATE: 07/06/2018 REASON FOR CONSULTATION: Mandibular mass. HISTORY OF PRESENT ILLNESS: This is a 48-year-old female with 6-month history of right mandibular mass, which was small, got enlarged recently. He also has pain, moderate, constant for few days. PAST MEDICAL HISTORY: As noted in the chart by me. MEDICATIONS: As noted in the chart by me. ALLERGIES: NOTED IN THE CHART BY ME. PHYSICAL EXAMINATION: HEAD: Atraumatic and normocephalic. FACE: Good facial movements bilaterally. CONSTITUTIONAL: Well fed, well nourished. COMMUNICATION: Communicates well and appropriately. EXTERNAL NOSE AND EARS: No masses, no lesions, no erythema, and no edema. INTERNAL NOSE AND EARS: Deviated septum. No masses, no lesions, no erythema, and no edema. ORAL CAVITY AND OROPHARYNX: No masses, no lesions, no erythema, no edema, and no trismus. LIPS AND GUMS: No masses, no lesions, no erythema, and no edema. NECK: Supple. There is a 2.5 cm mass overlying the right mandible. It is firm and mobile. LYMPH NODES: No lymphadenopathy of the neck. THYROID: No thyromegaly. No goiter. DIAGNOSTIC DATA: CAT scan was reviewed by me, reveals a 2.5 cm mass over the right mandible, deep to the platysma. ASSESSMENT: Mandibular mass. PLAN: Admitted to the hospital, started on IV antibiotics. If the patient does not improve within 24-48 hours, consider ultrasound-guided biopsy. Anmol Verdugo MD
[2018-07-07 07:42] LABS: BASO % 0.6 % (0.0-2.0); EOS # 0.2 K/uL (0.0-0.7); EOS % 4.3 % (0.0-4.0); HEMOGLOBIN 13.5 g/dL (11.0-16.0); LYMPH # 1.4 K/uL (1.0-4.3); LYMPH % 27.8 % (20.0-40.0); MEAN CELL VOLUME 82.7 fL (81.0-99.0); MEAN CORPUSCULAR HEMOGLOBIN 27.4 pg (27.0-31.0); MEAN CORPUSCULAR HGB CONC 33.1 g/dL (33.0-37.0); MEAN PLATELET VOLUME 9.4 fL (7.2-11.7); MONO # 0.4 K/uL (0.0-0.8); MONO % 8.3 % (0.0-10.0); NEUT # 3.1 K/uL (1.8-7.0); NRBC % 0.1 % (0.0-2.0); RBC 4.91 Mil/uL (3.80-5.20); RED CELL DISTRIBUTION WIDTH 14.1 % (11.5-14.5); WHITE BLOOD COUNT 5.2 K/uL (4.8-10.8)
[2018-07-07 07:45] LABS: INR 1.2; PROTHROMBIN TIME 12.7 SECONDS (9.7-12.2)
[2018-07-07 08:26] LABS: ALB/GLOB RATIO 1.2 (1.0-2.1); ALT/SGPT 28 U/L (9-52); AST/SGOT 25 U/L (14-36); BLOOD UREA NITROGEN 13 mg/dL (7-17); CALCIUM 9.3 mg/dl (8.6-10.4); GFR NON-AFRICAN AMERICAN > 60
--- NOTE | 2018-07-07 08:50 | CP.PCM.PCO ---
Physician Communication Note - Physician Communication Note Physician Communication Note: Please see above
[2018-07-07] MEDS: Saccharomyces Boulardi 250 mg Cap PO SCH ×2 (10:42→18:03)
--- NOTE | 2018-07-07 14:40 | CP.PCM.PN ---
<Madison Hutson - Last Filed: 07/07/18 19:58> Subjective - Date & Time of Evaluation Date of Evaluation: 07/07/18 Time of Evaluation: 14:37 - Subjective Subjective: PGY-1 Madison Hutson D.O. Medicine progress note for Dr. Josué Hernandez's service: Patient was seen and examined this morning. She states that the pain is still p resent but decreased. The mass is till the same size. There is no bleeding or drainage. Denies fevers and chills. Denies trouble breathing or swallowing. Objective - Vital Signs/Intake and Output Vital Signs (last 24 hours): Temp Pulse Resp BP Pulse Ox 98.2 F 72 20 131/83 95 07/07/18 08:25 07/07/18 08:25 07/07/18 08:25 07/07/18 08:25 07/07/18 08:25 Intake and Output: 07/07/18 07/07/18 06:59 18:59 Intake Total 540 Output Total 600 Balance -60 - Medications Medications: Current Medications Acetaminophen (Tylenol 325mg Tab) 650 mg PO Q6 PRN PRN Reason: Fever >100.4 F Clindamycin HCl (Cleocin) 300 mg PO TID [facility]; Protocol Last Admin: 07/07/18 10:42 Dose: 300 mg Docusate Sodium (Colace) 100 mg PO BID [facility] Last Admin: 07/07/18 10:42 Dose: 100 mg Heparin Sodium (Porcine) (Heparin) 5,000 units SC Q8 [facility] Last Admin: 07/07/18 05:48 Dose: 5,000 units Pneumococcal Polyvalent Vaccine (Pneumovax 23 Vaccine) 0.5 ml IM .ONCE ONE Stop: 07/08/18 10:01 Saccharomyces Boulardii (Florastor) 250 mg PO BID [facility] Last Admin: 07/07/18 10:42 Dose: 250 mg - Labs Labs: 07/07/18 07:23 07/07/18 07:23 PT 12.7 SECONDS (9.7-12.2) H 07/07/18 07:23 INR 1.2 07/07/18 07:23 APTT 36.0 SECONDS (21-34) H 07/07/18 07:23 - Constitutional Appears: Non-toxic, No Acute Distress - Head Exam Head Exam: ATRAUMATIC, NORMAL INSPECTION - Eye Exam Eye Exam: EOMI, Normal appearance - ENT Exam ENT Exam: Mucous Membranes Moist - Neck Exam Additional comments: approx 4 cm round mass on right angle of mandible, no overlying erythema, slight tenderness to palpation, no drainage or bleeding- unchanged from admission - Respiratory Exam Respiratory Exam: Clear to Ausculation Bilateral, NORMAL BREATHING PATTERN - Cardiovascular Exam Cardiovascular Exam: RRR, +S1, +S2 - GI/Abdominal Exam GI & Abdominal Exam: Soft. absent: Distended, Tenderness Additional comments: obese - Extremities Exam Extremities Exam: Normal Inspection - Neurological Exam Neurological Exam: Alert, Awake, CN II-XII Intact, Oriented x3 - Psychiatric Exam Psychiatric exam: Normal Affect, Normal Mood - Skin Skin Exam: Dry, Normal Color, Warm Assessment and Plan - Assessment and Plan (Free Text) Assessment: Patient is a 48 yo female with a history of anemia who presents with R jaw mass/swelling. CT read as necrotic LN. ENT consulted who recommends US-guided biopsy by IR. Patient being treated with abx. Plan: Necrotic lymphadenopathy - Afebrile, no leukocytosis - Soft tissue CT: Approximately 3.0 x 1.8 x 2.6 cm enhancing nodule with an eccentric necrotic component anteriorly, located deep to the right platysma overlying the angle of the mandible. Findings are most compatible with enlarged necrotic lymph node, given multiple subcentimeter lymph nodes involving the anterior and posterior cervical chain lymph nodes, this may be reactive, infectious or inflammatory in etiology. Neoplastic etiology including lymphoma is a consideration. The other differential considerations include benign and malignant soft tissue neoplasm. - Blood Cx no growth >24 hours - Clindamycin 300 mg PO TID - Florastor 250 mg PO BID - Tylenol 650 mg Q6H PRN - ENT consulted ([facility])- rec abx and Bx - [facility] US-guided Bx tomorrow 07/08 Constipation - Colace 100mg PO BID Ppx: VTE: SCDs, Heparin 5000 units SC Q8H GI: not indicated Diet: Heart healthy diet Code status: full code Dispo: Pending biopsy tomorrow 07/08. Then discharge to follow up results in clinic as outpatient. Case discussed with attending, Dr. Josué Hernandez. <Jeremy Hernandez - Last Filed: 07/11/18 19:09> Objective - Vital Signs/Intake and Output Vital Signs (last 24 hours): Temp Pulse Resp BP Pulse Ox 97.8 F 82 20 108/78 100 07/08/18 08:00 07/08/18 08:00 07/08/18 08:00 07/08/18 08:00 07/10/18 14:30 - Labs Labs: 07/08/18 07:15 07/08/18 07:15 PT 12.7 SECONDS (9.7-12.2) H 07/07/18 07:23 INR 1.2 07/07/18 07:23 APTT 36.0 SECONDS (21-34) H 07/07/18 07:23 Attending/Attestation - Attestation I have personally seen and examined this patient.: Yes I have fully participated in the care of the patient.: Yes I have reviewed all pertinent clinical information, including history, physical exam and plan: Yes Notes (Text): 07/11/18 19:09 This is a late entry. Care of this patient was gone over with resident. Jeremy Hernandez D.O.
--- NOTE | 2018-07-08 07:09 | CP.PCM.DIS ---
<Madison Hutson - Last Filed: 07/08/18 14:04> Provider - Provider Date of Admission: 07/06/18 18:31 Attending physician: Jeremy Hernandez MD Primary care physician: none Consults: 07/06/18 18:06 Physician Consult Stat Comment: right infected lymph node Consulting Provider: Anmol Verdugo Consulting Physician: Anmol Verdugo Reason for Consult: ent Additional Comments: spoken with 07/07/18 11:22 Physician Consult Routine Comment: Consulting Provider: Noman Duval Consulting Physician: Noman Duval Reason for Consult: US-guided biopsy of R mandibular mass/LN Time Spent in preparation of Discharge (in minutes): 45 Diagnosis - Discharge Diagnosis (1) Necrotizing inflammation of lymph node Status: Acute Priority: High (2) Obesity Status: Chronic Priority: Medium Hospital Course - Lab Results Lab Results: Micro Results 07/06/18 19:33 Blood Blood Culture - Preliminary NO GROWTH AFTER 24 HOURS 07/06/18 19:33 Blood Blood Culture - Preliminary NO GROWTH AFTER 24 HOURS Most Recent Lab Values WBC 5.2 K/uL (4.8-10.8) 07/07/18 07:23 RBC 4.91 Mil/uL (3.80-5.20) 07/07/18 07:23 Hgb 13.5 g/dL (11.0-16.0) 07/07/18 07:23 Hct 40.6 % (34.0-47.0) 07/07/18 07:23 MCV 82.7 fL (81.0-99.0) 07/07/18 07:23 MCH 27.4 pg (27.0-31.0) 07/07/18 07:23 MCHC 33.1 g/dL (33.0-37.0) 07/07/18 07:23 RDW 14.1 % (11.5-14.5) 07/07/18 07:23 Plt Count 156 K/uL (130-400) 07/07/18 07:23 MPV 9.4 fL (7.2-11.7) 07/07/18 07:23 Neut % (Auto) 59.0 % (50.0-75.0) 07/07/18 07:23 Lymph % (Auto) 27.8 % (20.0-40.0) 07/07/18 07:23 [place] % (Auto) 8.3 % (0.0-10.0) 07/07/18 07:23 Eos % (Auto) 4.3 % (0.0-4.0) H 07/07/18 07:23 Baso % (Auto) 0.6 % (0.0-2.0) 07/07/18 07:23 Neut # (Auto) 3.1 K/uL (1.8-7.0) 07/07/18 07:23 Lymph # (Auto) 1.4 K/uL (1.0-4.3) 07/07/18 07:23 [place] # (Auto) 0.4 K/uL (0.0-0.8) 07/07/18 07:23 Eos # (Auto) 0.2 K/uL (0.0-0.7) 07/07/18 07:23 Baso # (Auto) 0.0 K/uL (0.0-0.2) 07/07/18 07:23 PT 12.7 SECONDS (9.7-12.2) H 07/07/18 07:23 INR 1.2 07/07/18 07:23 APTT 36.0 SECONDS (21-34) H 07/07/18 07:23 Sodium 138 mmol/L (132-148) 07/07/18 07:23 Potassium 4.2 mmol/L (3.6-5.2) 07/07/18 07:23 Chloride 102 mmol/L (98-107) 07/07/18 07:23 Carbon Dioxide 24 mmol/L (22-30) 07/07/18 07:23 Anion Gap 17 (10-20) 07/07/18 07:23 BUN 13 mg/dL (7-17) 07/07/18 07:23 Creatinine 0.6 mg/dL (0.7-1.2) L 07/07/18 07:23 Est GFR ( Amer) > 60 07/07/18 07:23 Est GFR (Non-Af Amer) > 60 07/07/18 07:23 POC Glucose (mg/dL) 130 mg/dL (65-110) H 07/07/18 20:59 Random Glucose 100 mg/dL (65-105) 07/07/18 07:23 Calcium 9.3 mg/dl (8.6-10.4) 07/07/18 07:23 Phosphorus 4.1 mg/dL (2.5-4.5) 07/07/18 07:23 Magnesium 2.0 mg/dL (1.6-2.3) 07/07/18 07:23 Total Bilirubin 1.1 mg/dL (0.2-1.3) 07/07/18 07:23 AST 25 U/L (14-36) 07/07/18 07:23 ALT 28 U/L (9-52) 07/07/18 07:23 Alkaline Phosphatase 72 U/L (38-126) 07/07/18 07:23 Total Protein 7.3 g/dL (6.3-8.3) 07/07/18 07:23 Albumin 4.0 g/dL (3.5-5.0) 07/07/18 07:23 Globulin 3.4 gm/dL (2.2-3.9) 07/07/18 07:23 Albumin/Globulin Ratio 1.2 (1.0-2.1) 07/07/18 07:23 Urine HCG, Qual Negative (NEGATIVE) 07/07/18 04:30 - Hospital Course Hospital Course: Patient is a 48 year old female who presents for right jaw swelling for the past 6 months, that enlarged in size and became painful over the past 3 days with pressure like pain radiating up to right ear and right eye. She states she feels as though her vision in her right eye is slightly blurry but denies any pain in her right eye itself. She denies pain with movement of her right eye. She states she has intermittent buzzing in her right ear as well. She states she had subjective fever and chills for the past 3 days as well, but never checked her temperature at home. She denies pain with swallowing or difficulty swallowing. She has been eating and drinking solids and liquids without any issues. She admits to pain when she bites down on her right side, but states she has no teeth on right lower side. She has taken Tylenol for her symptoms with mild improvement of her symptoms. She denies recent sick contacts. Soft tissue CT: Approximately 3.0 x 1.8 x 2.6 cm enhancing nodule with an eccentric necrotic component anteriorly, located deep to the right platysma overlying the angle of the mandible. Findings are most compatible with enlarged necrotic lymph node, given multiple subcentimeter lymph nodes involving the anterior and posterior cervical chain lymph nodes, this may be reactive, infectious or inflammatory in etiology. Neoplastic etiology including lymphoma is a consideration. The other differential considerations include benign and malignant soft tissue neoplasm. Patient was admitted for necrotizing lymph node. ENT was consulted. Patient was started on clindamycin. ENT recommended US-guided biopsy. Therefor, IR was consulted, and biopsy was obtained. Upon discharge, patient's pain was improved with Tylenol. She was afebrile and without leukocytosis. Blood Cx had no growth for 24 hours. She will continue abx for a total of 10 days and follow-up in the clinic for further management. Discharge Exam - Head Exam Head Exam: ATRAUMATIC, NORMAL INSPECTION - Eye Exam Eye Exam: EOMI, Normal appearance - ENT Exam ENT Exam: Mucous Membranes Moist Additional comments: approx 4 cm round mass on right angle of mandible, no overlying erythema, slight tenderness to palpation, no drainage or bleeding- unchanged from admission now with overlying band-aid post biopsy - Neck Exam Neck exam: Lymphadenopathy, Tenderness - Respiratory Exam Respiratory Exam: Clear to PA & Lateral, NORMAL BREATHING PATTERN, UNREMARKABLE - Cardiovascular Exam Cardiovascular Exam: JVD, +S1, +S2 - GI/Abdominal Exam GI & Abdominal Exam: Soft, Unremarkable Additional comments: obese - Extremities Exam Extremities exam: normal inspection - Back Exam Back exam: NORMAL INSPECTION - Neurological Exam Neurological exam: Alert, CN II-XII Intact, Normal Gait, Oriented x3 - Psychiatric Exam Psychiatric exam: Normal Affect, Normal Mood - Skin Skin Exam: Dry, Normal Color, Warm Discharge Plan - Discharge Medications Prescriptions: Clindamycin [Cleocin] 300 mg PO QID #32 cap Lactobacillus Acidophilus [Lactobacillus] 1 cap PO BID #74 cap - Follow Up Plan Condition: GOOD Disposition: HOME/ ROUTINE Patient education suggested?: Yes Instructions: Clindamycin (Systemic), Lactobacillus, Lymphadenitis (DC) Additional Instructions: Establish care at the [facility] at [facility] within 1 week of discharge. They will serve as your primary care provider. They will give you the results of your biopsy and help you with any referrals or medications needed. Call [phone] to make an appointment. Take Clindamycin 300 mg four times a day for the next 8 days (until all pills completed). Take Lactobacillus two times a day until all pills completed. Establezca atencin en la clnica de [facility]tonia del vecindario en [facility] dentro de 1 semana de chin. Ellos servirn ana m suarez proveedor de atencin primaria. Ellos le darn los resultados de suarez biopsia y le ayudarn con cualquier derivacin o medicamentos necesarios. Llame al [phone] para concertar ruth ann ashley. Naches clindamicina 300 mg cuatro veces al da mary los prximos 8 peña (hasta que todas las pldoras se completen). Carol Lactobacillus dos veces al da hasta que todas las pldoras completadas. Referrals: [facility] at [facility] [Outside] Anmol Verdugo MD [Staff Provider] - <Jeremy Hernandez - Last Filed: 07/08/18 19:09> Provider - Provider Date of Admission: 07/06/18 18:31 Attending physician: Jeremy Hernandez MD Consults: 07/06/18 18:06 Physician Consult Stat Comment: right infected lymph node Consulting Provider: Anmol Verdugo Consulting Physician: Anmol Verdugo Reason for Consult: ent Additional Comments: spoken with 07/07/18 11:22 Physician Consult Routine Comment: Consulting Provider: Noman Duval Consulting Physician: Noman Duval Reason for Consult: US-guided biopsy of R mandibular mass/LN Hospital Course - Lab Results Lab Results: Micro Results 07/06/18 19:33 Blood Blood Culture - Preliminary NO GROWTH AFTER 24 HOURS 07/06/18 19:33 Blood Blood Culture - Preliminary NO GROWTH AFTER 24 HOURS Most Recent Lab Values WBC 5.1 K/uL (4.8-10.8) 07/08/18 07:15 RBC 5.16 Mil/uL (3.80-5.20) 07/08/18 07:15 Hgb 14.0 g/dL (11.0-16.0) 07/08/18 07:15 Hct 43.0 % (34.0-47.0) 07/08/18 07:15 MCV 83.2 fL (81.0-99.0) 07/08/18 07:15 MCH 27.0 pg (27.0-31.0) 07/08/18 07:15 MCHC 32.5 g/dL (33.0-37.0) L 07/08/18 07:15 RDW 13.8 % (11.5-14.5) 07/08/18 07:15 Plt Count 153 K/uL (130-400) 07/08/18 07:15 MPV 9.6 fL (7.2-11.7) 07/08/18 07:15 Neut % (Auto) 58.4 % (50.0-75.0) 07/08/18 07:15 Lymph % (Auto) 26.9 % (20.0-40.0) 07/08/18 07:15 [place] % (Auto) 10.0 % (0.0-10.0) 07/08/18 07:15 Eos % (Auto) 4.2 % (0.0-4.0) H 07/08/18 07:15 Baso % (Auto) 0.5 % (0.0-2.0) 07/08/18 07:15 Neut # (Auto) 3.0 K/uL (1.8-7.0) 07/08/18 07:15 Lymph # (Auto) 1.4 K/uL (1.0-4.3) 07/08/18 07:15 [place] # (Auto) 0.5 K/uL (0.0-0.8) 07/08/18 07:15 Eos # (Auto) 0.2 K/uL (0.0-0.7) 07/08/18 07:15 Baso # (Auto) 0.0 K/uL (0.0-0.2) 07/08/18 07:15 PT 12.7 SECONDS (9.7-12.2) H 07/07/18 07:23 INR 1.2 07/07/18 07:23 APTT 36.0 SECONDS (21-34) H 07/07/18 07:23 Sodium 140 mmol/L (132-148) 07/08/18 07:15 Potassium 4.2 mmol/L (3.6-5.2) 07/08/18 07:15 Chloride 102 mmol/L (98-107) 07/08/18 07:15 Carbon Dioxide 27 mmol/L (22-30) 07/08/18 07:15 Anion Gap 15 (10-20) 07/08/18 07:15 BUN 15 mg/dL (7-17) 07/08/18 07:15 Creatinine 0.6 mg/dL (0.7-1.2) L 07/08/18 07:15 Est GFR ( Amer) > 60 07/08/18 07:15 Est GFR (Non-Af Amer) > 60 07/08/18 07:15 POC Glucose (mg/dL) 130 mg/dL (65-110) H 07/07/18 20:59 Random Glucose 105 mg/dL (65-105) 07/08/18 07:15 Calcium 9.1 mg/dl (8.6-10.4) 07/08/18 07:15 Phosphorus 3.9 mg/dL (2.5-4.5) 07/08/18 07:15 Magnesium 2.0 mg/dL (1.6-2.3) 07/08/18 07:15 Total Bilirubin 0.9 mg/dL (0.2-1.3) 07/08/18 07:15 AST 31 U/L (14-36) 07/08/18 07:15 ALT 28 U/L (9-52) 07/08/18 07:15 Alkaline Phosphatase 66 U/L (38-126) 07/08/18 07:15 Total Protein 7.2 g/dL (6.3-8.3) 07/08/18 07:15 Albumin 3.9 g/dL (3.5-5.0) 07/08/18 07:15 Globulin 3.3 gm/dL (2.2-3.9) 07/08/18 07:15 Albumin/Globulin Ratio 1.2 (1.0-2.1) 07/08/18 07:15 Urine HCG, Qual Negative (NEGATIVE) 07/07/18 04:30 Attending/Attestation - Attestation I have personally seen and examined this patient.: Yes I have fully participated in the care of the patient.: Yes I have reviewed all pertinent clinical information, including history, physical exam and plan: Yes Notes (Text): 07/08/18 19:07 Patient was seen and examined with resident Dr. Hutson. Care of this patient and all discharge instructions were gone over with Dr. Hutson Plan of care and discharge instructions were gone over with the patient with the help of Nurse Rasheed who translated in Uzbek (this was done on 07/07/18 in anticipation of her discharge on 07/08/18) Jeremy Hernandez D.O.
[2018-07-08 07:26] LABS: BASO % 0.5 % (0.0-2.0); EOS # 0.2 K/uL (0.0-0.7); EOS % 4.2 % (0.0-4.0); LYMPH # 1.4 K/uL (1.0-4.3); LYMPH % 26.9 % (20.0-40.0); MEAN CELL VOLUME 83.2 fL (81.0-99.0); MEAN CORPUSCULAR HGB CONC 32.5 g/dL (33.0-37.0); MEAN PLATELET VOLUME 9.6 fL (7.2-11.7); MONO # 0.5 K/uL (0.0-0.8); NEUT % 58.4 % (50.0-75.0); NRBC % 0.1 % (0.0-2.0); RBC 5.16 Mil/uL (3.80-5.20); RED CELL DISTRIBUTION WIDTH 13.8 % (11.5-14.5); WHITE BLOOD COUNT 5.1 K/uL (4.8-10.8)
[2018-07-08 07:55] LABS: ALB/GLOB RATIO 1.2 (1.0-2.1); ALBUMIN 3.9 g/dL (3.5-5.0); ALT/SGPT 28 U/L (9-52); AST/SGOT 31 U/L (14-36); BLOOD UREA NITROGEN 15 mg/dL (7-17); CALCIUM 9.1 mg/dl (8.6-10.4); GFR NON-AFRICAN AMERICAN > 60
[2018-07-08 08:04] VITALS: BP 108/78; PULSE 82; TEMP 97.8
[2018-07-08] MEDS: Saccharomyces Boulardi 250 mg Cap PO SCH (09:44)
[2018-07-08] MEDS ORDERED: Pneumococcal 23-Valent Vaccine IM ONE (10:00)
--- NOTE | 2018-07-08 11:08 | PCM.SURG1 ---
Surgeon's Initial Post Op Note - Surgeon's Notes Surgeon: Noman Duval MD [employer]: NONE Type of Anesthesia: Local Pre-Operative Diagnosis: Right neck mass, mandibular mass Operative Findings: US showed a complex 2.5 cm soft tissue mass overlying the mandible. Post-Operative Diagnosis: Right neck mass, mandibular mass Operation Performed: US guided FNA and aspiration. Specimen/Specimens Removed: 25 g FNA Estimated Blood Loss: EBL {In ML}: 1 Blood Products Given: N/A Drains Used: No Drains Post-Op Condition: Fair Date of Surgery/Procedure: 07/08/18 Time of Surgery/Procedure: 11:05
[2018-07-10 14:29] VITALS: O2SAT 100
--- NOTE | 2018-07-12 12:24 | US ---
PROCEDURE: Date of procedure: 07/08/2018 Procedure: Ultrasound-guided biopsy of right mandibular mass HISTORY: Enlarged and painful right neck mass.. TECHNIQUE: Following informed consent and procedure time-out, limited ultrasound patient's right neck showed a complex soft tissue mass measuring 2.5 centimeter separate from right mandible. After the patient neck was prepped and draped in the usual sterile fashion and the skin anesthetized with lidocaine, ultrasound guided FNA was performed. A 25 g needle was advanced under US guidance into the mass. A total of 4 passes were made. Specimen was sent for routine histology. A small drainage catheter was advanced into the mass and the mass was aspirated. A scant amount of fluid was returned and sent for culture. Post procedure ultrasound showed no hematoma. A dressing applied. IMPRESSION: Ultrasound-guided fine aspiration and aspiration of right neck soft tissue mass.
== END 2018-07-08 12:53 | disposition home or self-care (01) | DRG 651 ==
LOC: C.ER 12:44 → C.9E 18:31 → C.3T 19:44
PROVIDERS: ADMIT Family Medicine; ATTEND Family Medicine
PROC: 07B13ZX Excision of Right Neck Lymphatic, Percutaneous Approach, Diagnostic (ICD-10-PCS; principal; 2018-07-08)
DX: R59.0 Localized enlarged lymph nodes (principal); I10 Essential (primary) hypertension; E66.9 Obesity, unspecified; K59.00 Constipation, unspecified